=== PATIENT | male | born 1940 | race Caucasian/White ===

== ENCOUNTER 2024-04-13 20:33 | Emergency (ER) | payer MEDICARE, OTHER, SELFPAY ==
[2024-04-13 20:36] VITALS: BP 176/97; PULSE 62; RESP 18; TEMP 36.7; O2SAT 98; BMI 32.8
--- NOTE | 2024-04-13 20:49 | CTR_ITS ---
PROCEDURE INFORMATION: Exam: CTA Chest With Contrast Exam date and time: 04/13/2024 9:38 PM Age: 83 years old Clinical indication: Dyspnea, lung cancer, HX of pe? No anticoagulation TECHNIQUE: Imaging protocol: Computed tomographic angiography of the chest with contrast. Exam focused on the arteries. 3D rendering (Not supervised by radiologist): MIP and/or 3D reconstructed images were created by the technologist. Radiation optimization: All CT scans at this facility use at least one of these dose optimization techniques: automated exposure control; mA and/or kV adjustment per patient size (includes targeted exams where dose is matched to clinical indication); or iterative reconstruction. Contrast material: OMNI 350; Contrast volume: 80 ml; Contrast route: INTRAVENOUS (IV); COMPARISON: No relevant prior studies available. RADIATION DOSE METRICS: Total DLP (mGy-cm): 487 FINDINGS: Pulmonary arteries: There are ill-defined filling defect in 3rd order branches of the right pulmonary artery supplying the right lower lobe which are positioned diffusely and or eccentricly, consistent with chronic pulmonary emboli. These arteries are adjacent to the region of right lower lobe pulmonary consolidation. Aorta: Unremarkable. No aortic aneurysm. No aortic dissection. Lungs: There are postoperative changes with volume loss in the right lung with rightward mediastinal shift. Pleural spaces: Large right pleural effusion with adjacent consolidation. There is scarring and calcifications of the right lung base. There are multiple noncalcified bilateral pulmonary opacities the largest of which is pleural based along the lateral aspect of the left upper lobe seen on series 5, image 22 measuring 7 mm. Heart: Cardiomegaly. Normal RV/LV ratio of less than 1. Coronary arteries: Multivessel atherosclerotic disease which involves the coronary arteries. Lymph nodes: Unremarkable. No enlarged lymph nodes. Bones/joints: Unremarkable. No acute fracture. Soft tissues: Unremarkable. Other findings: There are post-sternotomy changes and postoperative changes overlying the mediastinum. CT/CT angio chest PE protcl [id number] IMPRESSION: 1. There are chronic appearing pulmonary emboli in 3rd order branches of the right pulmonary artery supplying the right lower lobe. These pulmonary emboli are adjacent to region of right lower lobe pulmonary consolidation which may represent scar tissue, pneumonia, and or neoplasm. 2. Large right pleural effusion. 3. Cardiomegaly.
--- NOTE | 2024-04-13 20:50 | ECG_ITS ---
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 Measurements Intervals [place] Rate: 61 P: 0 [place]: 0 QRS: 248 QRSD: 197 T: 73 QT: 459 QTc: 466 Interpretive Statements ELECTRONIC VENTRICULAR PACEMAKER No previous ECG available for comparison Electronically Signed On 04-14-2024 10:32:15 CDT by Anthony Schmitz M.D. [email or web address] [email or web address] Systemschildren[facility].[employer]/store/NU/[id number] f
[2024-04-13 20:57] LABS: Basophils # 0.1 10^3/uL (0.0-0.1); Basophils % 0.9 %; Eosinophils # 0.2 10^3/uL (0.0-0.8); Hematocrit 36.5 % (37-53); Lymphocytes # 0.9 10^3/uL (0.8-4.8); Lymphocytes % 15.7 %; Mean Corpuscular HGB Conc 30.4 g/dL (30-55); Mean Corpuscular Volume 95.3 fl (82-101); Mean Platelet Volume 10.1 fL (7.4-10.4); Monocytes # 0.5 10^3/uL (0.2-0.9); Monocytes % 9.4 %; Neutrophils # 3.96 10^3/uL (1.8-7.7); Neutrophils % 70.5 %; Nucleated Red Blood Cells % 0 %; Platelet Count 153 10^3/cmm (157-399); Red Blood Count 3.83 10^6/uL (3.85-5.65); Red Cell Distribution Width 14.3 % (12.1-15.1); White Blood Count 5.62 10^3/uL (3.29-11.43)
[2024-04-13 21:05] LABS: INR 1.04 (0.8-1.2)
--- NOTE | 2024-04-13 21:10 | W.ED.SOB ---
HPI - SOB/Dyspnea General: Chief Complaint: Shortness of Breath/Dyspnea Stated Complaint: SOB Time Seen by Provider: 04/13/24 20:36 History of Present Illness: HPI Narrative: Patient presents to the ER with complaints of shortness of breath and coughing up blood. Patient states this been going on for couple days. Patient does have known lung cancer and is currently undergoing treatment. He gets his treatments at [place]. Patient denies any chest pain. Patient states he had a recent CT done and they said he may have had a blood clot however he is not on any anticoagulation. Patient is normally on home oxygen at 4 L/min. Upon arrival patient is on 4 L/min here and his O2 saturation is 98%. Review of Systems General: Reports: 10 or more systems reviewed and unremarkable except in HPI and below Physical Exam Const: COMMON NORMALS: no acute distress, average body habitus, patient oriented x3, no limitations, healthy appearing, alert and well nourished HENMT: COMMON NORMALS: normocephalic, atraumatic, hearing grossly normal bilaterally, external ears normal, Normal external nose present and moist oral mucous membranes HEAD & SCALP: normocephalic and atraumatic NOSE: Normal external nose present EXTERNAL EAR: Yes external ears normal Neck/C-Spine: COMMON NORMALS: no JVD Chest: COMMONS NORMALS: normal inspection of the chest and normal palpation of entire chest wall Resp: COMMON NORMALS: normal respiratory effort, No retractions, No use of accessory muscles and clear to auscultation bilaterally AUSCULTATION: clear to auscultation bilaterally Cardio: COMMON NORMALS: no JVD, regular rate, regular rhythm, S1 normal heart sound present, S2 normal heart sound present, No gallops present (Cardio), No clicks present (Cardio) and No murmurs present (Cardio) RATE: regular rate RHYTHM: regular rhythm HEART SOUNDS: S1 normal heart sound present and S2 normal heart sound present GI: COMMON NORMALS: Normal to inspection, nondistended, normoactive bowel sounds present, Soft to palpation, non-tender, No hepatosplenomegaly present and no masses PALPATION: Yes Soft to palpation and Yes No hepatosplenomegaly present Neuro: COMMON NORMALS: patient oriented x3 SENSORIUM/ORIENTATION: Yes alert Course Vital Signs: Vital signs: Vital Signs Temperature 98.0 F 04/13/24 20:36 Pulse Rate 57 L 04/13/24 23:15 Respiratory Rate 16 04/13/24 23:15 Blood Pressure 138/74 04/13/24 23:15 Pulse Oximetry 93 04/13/24 23:15 Oxygen Delivery Me thod Nasal Cannula 04/13/24 23:15 Oxygen Flow Rate 4 04/13/24 23:15 MDM - SOB/Dyspnea Medical Decision Making Patient lab work included CBC CMP procalcitonin 0 troponins, serial EKGs, chest CTA, hemoglobin hematocrit 11.1/36.5, BUN/creatinine 37 and 1.7, troponins 42 and 37, for delta of -4, procalcitonin 0.08. CTA did show chronic appearing pulmonary emboli. However patient is coughing up some blood. So I be leery of putting him on any type of anticoagulation at this time. Patient be given Tessalon Perles for his cough and discharged home so he can follow-up with his oncologist and PCP. Differential Diagnosis Unlikely acute exacerbation of chronic obstructive airways disease, congestive heart failure, community acquired pneumonia, asthma with exacerbation or pulmonary embolism Medical Records I reviewed the patient's medical records. Lab Data I reviewed the patient's lab results. 04/13/24 20:49 04/13/24 20:49 Labs/Radiology: Radiology Impressions Chest CTA 04/13/24 20:49 IMPRESSION: 1. There are chronic appearing pulmonary emboli in 3rd order branches of the right pulmonary artery supplying the right lower lobe. These pulmonary emboli are adjacent to region of right lower lobe pulmonary consolidation which may represent scar tissue, pneumonia, and or neoplasm. 2. Large right pleural effusion. 3. Cardiomegaly. ADDENDUM: 04/13/24 2247 CRITICAL RESULT: The study was personally discussed on the telephone with Tramaine Rosado on 04/13/2024 10:45 PM CDT. The results were understood and acknowledged. Laboratory Results WBC 5.62 10^3/uL (3.29-11.43) 04/13/24 20:49 RBC 3.83 10^6/uL (3.85-5.65) L 04/13/24 20:49 Hgb 11.10 g/dL (11.27-16.99) L 04/13/24 20:49 Hct 36.5 % (37-53) L 04/13/24 20:49 MCV 95.3 fl (82-101) 04/13/24 20:49 MCH 29.0 pg (27-33) 04/13/24 20:49 MCHC 30.4 g/dL (30-55) 04/13/24 20:49 RDW 14.3 % (12.1-15.1) 04/13/24 20:49 Plt Count 153 10^3/cmm (157-399) L 04/13/24 20:49 MPV 10.1 fL (7.4-10.4) 04/13/24 20:49 Neut % (Auto) 70.5 % 04/13/24 20:49 Lymph % (Auto) 15.7 % 04/13/24 20:49 [place] % (Auto) 9.4 % 04/13/24 20:49 Eos % (Auto) 3.0 % 04/13/24 20:49 Baso % (Auto) 0.9 % 04/13/24 20:49 Neut # (Auto) 3.96 10^3/uL (1.8-7.7) 04/13/24 20:49 Lymph # (Auto) 0.9 10^3/uL (0.8-4.8) 04/13/24 20:49 [place] # (Auto) 0.5 10^3/uL (0.2-0.9) 04/13/24 20:49 Eos # (Auto) 0.2 10^3/uL (0.0-0.8) 04/13/24 20:49 Baso # (Auto) 0.1 10^3/uL (0.0-0.1) 04/13/24 20:49 Nucleated RBC % (auto) 0 % 04/13/24 20:49 Nucleated RBCs # 0.0 /100WBC 04/13/24 20:49 PT 13.90 SECONDS (12.1-14.9) 04/13/24 20:49 INR 1.04 (0.8-1.2) 04/13/24 20:49 Sodium 134 mmol/L (136-145) L 04/13/24 20:49 Potassium 5.0 mmol/L (3.5-5.1) 04/13/24 20:49 Chloride 97 mmol/L (98-107) L 04/13/24 20:49 Carbon Dioxide 28 mmol/L (22-29) 04/13/24 20:49 Anion Gap 14.0 (5-19) 04/13/24 20:49 BUN 37 mg/dL (8-23) H 04/13/24 20:49 Creatinine 1.7 mg/dL (0.7-1.2) H 04/13/24 20:49 GFR Calculation Not Reportable 04/13/24 20:49 Glucose 104 mg/dL (65-115) 04/13/24 20:49 Calculated Osmolality 287 mOsm/kg (285-295) 04/13/24 20:49 Calcium 8.6 mg/dL (8.5-10.5) 04/13/24 20:49 Magnesium 1.8 mg/dL (1.7-2.3) 04/13/24 20:49 Total Bilirubin 0.5 mg/dL (0.15-1.2) 04/13/24 20:49 AST 17 U/L (0-40) 04/13/24 20:49 ALT 11 U/L (0-41) 04/13/24 20:49 Alkaline Phosphatase 61 U/L (40-130) 04/13/24 20:49 Troponin T Baseline 42 ng/L (0-15) H 04/13/24 20:49 Troponin T 120 Minute 37.62 ng/L (0-15) H 04/13/24 22:50 Delta Troponin T -4.38 ABS# (0-10) L 04/13/24 22:50 Total Protein 5.5 g/dL (6.6-8.7) L 04/13/24 20:49 Albumin 3.5 g/dL (3.5-5.2) 04/13/24 20:49 Globulin 2.0 g/dL (1.3-4.6) 04/13/24 20:49 Procalcitonin 0.08 ng/mL (0-0.5) 04/13/24 20:49 All radiology interpretation(s) finalized by discharge EKG Data EKG 1: I personally reviewed and interpreted this EKG as follows: EKG Interpretation Date: 04/13/24 EKG interpretation time: 20:41 Prior EKG tracings: not available for review Interpretation: Ventricular rate 61 bpm, QRS duration 187, QTc of 463, electronic ventricular pacemaker EKG 2: I personally reviewed and interpreted this EKG as follows: EKG Interpretation Date: 04/14/24 EKG interpretation time: 22:49 Prior EKG tracings: available for review Interpretation: Ventricular rate 59 bpm, QRS duration 181, QTc of 453, electronic ventricular pacemaker Discharge Plan Discharge Patient Disposition: Home Clinical Impression: Cough with hemoptysis Pulmonary embolism Qualifiers: Pulmonary embolism type: unspecified Chronicity: chronic Acute cor pulmonale presence: without acute cor pulmonale Qualified Code(s): 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 Lung cancer Qualifiers: Laterality: unspecified laterality Lung location: unspecified part of lung Qualified Code(s): C34.90 - Malignant neoplasm of unspecified part of unspecified bronchus or lung Condition: Stable Prescriptions: New benzonatate 100 mg capsule 100 mg PO TID PRN (Reason: cough) Qty: 30 0RF Discharge Orders: Discharge ED (Routine); Ordered 04/13/24 Ordered By: Tramaine Larson Patient Instructions: Coughing Up Blood (Hemoptysis) (ED), Pulmonary Embolism Activity Restrictions/Additional Instructions: The CT angiogram of your chest showed you have chronic appearing pulmonary emboli or blood clots in both lungs. Normally we treat this with anticoagulation or blood thinners. But since you are coughing up blood I am hesitant to do that at this time. We will put you on Tessalon Perles which is a prescription strength cough medicine to try to keep you from coughing and making his bleeding worse. Please follow-up with your family practice physician and oncologist and let them know about your pulmonary emboli and get their opinion about treatment. If your Coding Level of Care Code ED Residential Mortgage Manager for Maddi Rudolph
[2024-04-13 21:15] LABS: Troponin(5th) Baseline 42 ng/L (0-15)
[2024-04-13 21:22] LABS: Alanine Aminotransferase 11 U/L (0-41); Albumin Level 3.5 g/dL (3.5-5.2); Alkaline Phosphatase 61 U/L (40-130); Aspartate Amino Transferase 17 U/L (0-40); Blood Urea Nitrogen 37 mg/dL (8-23); Calcium 8.6 mg/dL (8.5-10.5); Carbon Dioxide 28 mmol/L (22-29); Chloride 97 mmol/L (98-107); Creatinine Clr Calc Pharmacy 39.4605; Glucose 104 mg/dL (65-115); Magnesium 1.8 mg/dL (1.7-2.3); Osmolality Calculated 287 mOsm/kg (285-295); Sodium 134 mmol/L (136-145); Total Bilirubin 0.5 mg/dL (0.15-1.2); Total Protein 5.5 g/dL (6.6-8.7)
[2024-04-13 21:29] LABS: Procalcitonin 0.08 ng/mL (0-0.5)
[2024-04-13] MEDS: iohexol 350 mg/mL 500 mL Btl (per mL) IV (21:40)
--- NOTE | 2024-04-13 22:49 | ECG_ITS ---
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 Measurements Intervals [place] Rate: 59 P: 0 [place]: 0 QRS: -72 QRSD: 181 T: 82 QT: 453 QTc: 452 Interpretive Statements ELECTRONIC VENTRICULAR PACEMAKER Compared to ECG 04/13/2024 20:41:45 No significant changes Electronically Signed On 04-14-2024 10:33:10 CDT by Anthony Schmitz M.D. [email or web address] MediaJiahetrinity [email or web address] system twin city medical [email or web address]/store/[id number]
[2024-04-13 23:10] LABS: Troponin 5 2HR 37.62 ng/L (0-15)
[2024-04-13 23:15] VITALS: BP 138/74; PULSE 57; RESP 16; O2SAT 93
[2024-04-13 23:19] LABS: Troponin 5 2HR Delta -4.38 ABS# (0-10)
[2024-04-13] MEDS: benzonatate 100 mg Capsule 200 MG PO (23:45)
[2024-04-14 01:27] VITALS: BP 138/74; PULSE 57; RESP 16; TEMP 36.7; O2SAT 93
== END 2024-04-14 00:05 | disposition home or self-care (01) ==
PROVIDERS: Emergency Provider Emergency Medicine
DX: I27.82 Chronic pulmonary embolism (principal); C34.90 Malignant neoplasm of unspecified part of unspecified bronchus or lung; R04.2 Hemoptysis; Z95.0 Presence of cardiac pacemaker; Z99.81 Dependence on supplemental oxygen
CPT/HCPCS: 71275; 80053; 83735; 84145; 84484; 85025; 85610; 93005; 99285; Q9967